=== PATIENT | male | born 1955 | race African-American/Black ===

== ENCOUNTER 2017-07-26 16:42 | Emergency (ER) | payer OTHER ==
[2017-07-26 17:06] VITALS: BMI 21.9
[2017-07-26 17:43] LABS: HEMATOCRIT 42.3 % (35.4-49); HEMOGLOBIN 14.2 GM/dL (11.7-16.9); MCH 30.3 pg (25.7-33.7); MCHC 33.6 g/dl (32.0-35.9); MEAN CELL VOLUME 90.1 fl (80-96); MEAN PLT VOLUME 7.4 fl (7.5-11.1); PLATELET COUNT 189 K/MM3 (134-434); RDW 12.6 % (11.9-15.9); WHITE BLOOD COUNT 4.9 K/mm3 (4.0-10.0)
--- NOTE | 2017-07-26 17:47 | PDOC ---
History of Present Illness - General History Source: Patient Exam Limitations: No Limitations - History of Present Illness Initial Comments: 07/26/17 17:56 Patient is a 61 year old male with pmhx of hypertension, seizure and stroke ( 2014) who presents to the ED brought in by EMS for an unusual episode of staring and unresponsiveness to his followed by an episode of urinary incontinence. As per he was unresponsive for 1 minute and his eyes were bulging and he had a straight glare. She also reports history of bladder incontinence after the episode. He denies biting his tongue or hitting his head. He states that he has history of a stroke in 2014 and his was very concerned for another episode. He reports having a head cold for few days and he took sinus/cold medication today before the episode. He had a flu shot on 07/14. Neurologist - Dr. Cardenas PCP - Dr. Hudson [facility] [place] Drum - Dr. Titus <Pebbles Merida - Last Filed: 07/26/17 18:44> <Esther Nicolas - Last Filed: 07/27/17 01:03> - General Chief Complaint: Altered Mental Status Stated Complaint: WEAKNESS Time Seen by Provider: 07/26/17 17:31 Past History <Pebbles Merida - Last Filed: 07/26/17 18:44> - Past Medical History Anemia: No Asthma: No Cancer: No Cardiac Disorders: Yes (Atrial fibrillation 03/23 ,Cardiac cath neg) CVA: Yes (cva 06/2015) COPD: No CHF: Yes Diabetes: Yes HTN: Yes Liver Disease: Yes - Surgical History Abdominal Surgery: Yes (ing hernia) - Immunization History Immunization Up to Date: Yes - Suicide/Smoking/Psychosocial Hx Smoking History: Never smoked Have you smoked in the past 12 months: No If you are a former smoker, when did you quit?: 27 years ago Information on smoking cessation initiated: No Hx Alcohol Use: No Drug/Substance Use Hx: No Substance Use Type: None Hx Substance Use Treatment: No <Esther Nicolas - Last Filed: 07/27/17 01:03> - Past Medical History Allergies/Adverse Reactions: Allergies Allergy/AdvReac Type Severity Reaction Status Date / Time No Known Allergies Allergy Verified 07/26/17 17:04 Home Medications: Ambulatory Orders Amlodipine Besylate 5 mg PO BID 04/09/16 Atorvastatin Ca [Lipitor] 10 mg PO HS 04/09/16 Cholecalciferol (Vitamin D3) [Vitamin D3] 1,000 unit PO DAILY 04/09/16 Cyanocobalamin [Vitamin B12 -] 1,000 mcg PO DAILY 04/09/16 Metoprolol Succinate [Toprol XL -] 100 mg PO DAILY 04/09/16 Rivaroxaban [Xarelto -] 20 mg PO DAILY 04/09/16 Valsartan 320 mg PO DAILY 04/09/16 Acetaminophen [Tylenol .Regular Strength -] 650 mg PO Q6H PRN #0 tablet Amlodipine Besylate [Norvasc -] 5 mg PO BID tablet 04/11/16 Amoxicillin - [Amoxicillin 500mg Capsule -] 500 mg PO TID #21 capsule 04/11/16 Triamcinolone 0.1% Oral Paste [Aristocort 0.1% Oral Paste -] 1 applic DT TID #1 tube 04/11/16 Valsartan [Diovan] 320 mg PO DAILY tablet 04/11/16 Levetiracetam [Keppra -] 500 mg PO BID #60 tablet 07/26/17 Levetiracetam [Keppra -] 500 mg PO BID #60 tablet 07/26/17 Review of Systems - Review of Systems Able to Perform ROS?: Yes Comments:: 07/26/17 17:56 CONSTITUTIONAL: Absent: fever, chills, diaphoresis, generalized weakness, malaise, loss of appetite HEENT: Absent: rhinorrhea, nasal congestion, throat pain, throat swelling, difficulty swallowing, mouth swelling, ear pain, eye pain, visual Changes CARDIOVASCULAR: Absent: chest pain, syncope, palpitations, irregular heart rate, lightheadedness , peripheral edema RESPIRATORY: Absent: cough, shortness of breath, dyspnea with exertion, orthopnea, wheezing, stridor, hemoptysis GASTROINTESTINAL: Absent: abdominal pain, abdominal distension, nausea, vomiting, diarrhea, constipation, melena, hematochezia GENITOURINARY: Absent: dysuria, frequency, urgency, hesitancy, hematuria, flank pain, genital pain MUSCULOSKELETAL: Absent: myalgia, arthralgia, joint swelling SKIN: Absent: rash, itching, pallor HEMATOLOGIC/IMMUNOLOGIC: Absent: easy bleeding, easy bruising, lymphadenopathy, frequent infections ENDOCRINE: Absent: unexplained weight gain, unexplained weight loss, heat intolerance, cold intolerance NEUROLOGIC: Present: bladder incontinence, unresponsiveness Absent: headache, focal weakness or paresthesias, dizziness, unsteady gait, seizure, mental status changes, bowel incontinence PSYCHIATRIC: Absent: anxiety, depression, suicidal or homicidal ideation, hallucinations. <Pebbles Merida - Last Filed: 07/26/17 18:44> *Physical Exam - Vital Signs Last Vital Signs Temp Pulse Resp BP Pulse Ox 98.2 F 51 L 18 115/70 100 07/26/17 17:04 07/26/17 17:04 07/26/17 17:04 07/26/17 17:04 07/26/17 17:04 - Physical Exam Comments: 07/26/17 17:58 GENERAL: Well developed, well nourished. Awake and alert. No acute distress. HEENT: Normocephalic, atraumatic. PERRLA, EOMI. +Proptosis. No conjunctival pallor. Sclera are non-icteric. Moist mucous membranes. Oropharynx is clear. NECK: Supple. Full ROM. No JVD. Carotid pulses 2+ and symmetric, without bruits. No thyromegaly. No lymphadenopathy. CARDIOVASCULAR: Regular rate and rhythm. No murmurs, rubs, or gallops. Distal pulses are 2+ and symmetric. PULMONARY: No evidence of respiratory distress. Lungs clear to auscultation bilaterally. No wheezing, rales or rhonchi. ABDOMINAL: Soft. Non-tender. Non-distended. No rebound or guarding. No organomegaly. Normoactive bowel sounds. MUSCULOSKELETAL Normal range of motion at all joints. No bony deformities or tenderness. No CVA tenderness. EXTREMITIES: No cyanosis. No clubbing. No edema. No calf tenderness. SKIN: Warm and dry. Normal capillary refill. No rashes. No jaundice. NEUROLOGICAL: +Slow word retrieval, non slurring. Motor strength 5/5 bilaterally. Alert, awake, appropriate. Cranial nerves 2-12 intact. No deficits to light touch and temperature in face, upper extremities and lower extremities. No motor deficits in the in face, upper extremities and lower extremities. Normoreflexic in the upper and lower extremities. Toes are down- going bilaterally. PSYCHIATRIC: Cooperative. Good eye contact. Appropriate mood and affect. <Pebbles Merida - Last Filed: 07/26/17 18:44> - Vital Signs Last Vital Signs Temp Pulse Resp BP Pulse Ox 98.2 F 51 L 18 115/70 100 07/26/17 17:04 07/26/17 17:04 07/26/17 17:04 07/26/17 17:04 07/26/17 17:04 <Esther Nicolas - Last Filed: 07/27/17 01:03> ED Treatment Course - LABORATORY CBC & Chemistry Diagram: 07/26/17 17:30 07/26/17 17:30 - ADDITIONAL ORDERS Additional order review: 07/26/17 17:30 RBC 4.70 D MCV 90.1 MCHC 33.6 RDW 12.6 MPV 7.4 L Neutrophils % No Result Required. Lymphocytes % No Result Required. <Pebbles Merida - Last Filed: 07/26/17 18:44> - LABORATORY CBC & Chemistry Diagram: 07/26/17 17:30 07/26/17 17:30 - RADIOLOGY Radiology Studies Ordered: Category Date Time Status HEAD CT WITHOUT CONTRAST [CT] Stat CT Scan 07/26/17 17:32 Ordered CHEST X-RAY PORTABLE* [RAD] Stat Radiology 07/26/17 17:32 Ordered <Esther Nicolash - Last Filed: 07/27/17 01:03> Medical Decision Making - Medical Decision Making 07/26/17 18:44 A call was placed to Dr. Emerson. Awaiting a call back. <Pebbles Merida - Last Filed: 07/26/17 18:44> - Medical Decision Making 61-year-old male with past medical history of stroke had a brief staring episodew urinary incontinence. By the time he arrived, he was back to baseline and his NIH stroke scale is essentially 0. - he had a stroke in 2015 . He has a problem with word searching this is a chronic problem. His states that since his strole in 2015 he has overall physically slower doing many activities of daily living. However, he has no new gross focal neuro deficitis today - CAT scan did show chronic infarcts and chronic changes but no new acute intracranial pathology. We called the patient's neurologist, Dr. Cardenas today and spoke to his associate Dr Mayorga recommended patient be started on Keppra 500 mg twice a day and follow-up in the office this . The plan is for Dr. Mayorga 's office to call them tomorrow to set up a specific time to be seen on . Patient will be started on Keppra with a loading dose RX keppra 500mg BID to pharamcy 07/26/17 19:03 07/26/17 20:19 <Esther Nicolas - Last Filed: 07/27/17 01:03> *DC/Admit/Observation/Transfer - Attestations Scribe Attestion: 07/26/17 17:59 Documentation prepared by MÓNICA Smith, acting as medical assisting instructor for Esther Nicolas MD. <Pebbles Merida - Last Filed: 07/26/17 18:44> <Esther Nicolas - Last Filed: 07/27/17 01:03> Diagnosis at time of Disposition: Partial seizure - Discharge Dispostion Disposition: HOME Condition at time of disposition: Stable - Prescriptions Prescriptions: Levetiracetam [Keppra -] 500 mg PO BID #60 tablet Levetiracetam [Keppra -] 500 mg PO BID #60 tablet - Referrals Referrals: Minh Hudson MD [Primary Care Provider] - - Patient Instructions - Post Discharge Activity NIH Stroke Scale - Last Known Well Date/Time & Onset Date Last Known Well: 07/26/17 Time Last Known Well: 16:00 - Initial Evaluation Level of consciousness: Alert Ask patient the month and their age: Answers both correctly Ask patient to open & close eyes; make fist and let go: Obeys both correctly Best gaze (horizontal eye movement): Normal Visual field testing: No visual field loss Facial paresis (Show teeth/raise eyebrows/close eyes tight): Normal symmetrical movement Motor Function: Left Arm: Normal Motor Function: Right Arm: Normal (extends arm 90 (or 45) degrees for 10 seconds without drift Motor Function: Left Leg: Normal (extends leg 30 degrees for 5 seconds without drift) Motor Function: Right Leg: Normal (extends leg 30 degrees for 5 seconds without drift) Limb Ataxia: No ataxia Sensory(Use pinprick test arms,legs,trunk,face/side to side): Normal Best language (Describe picture, name items, read sentences): No Aphasia Dysarthria (read several words): Normal articulation (he does have a problem with word searching and this is chronic since his stroke 2014) Extinction and Inattention: No abnormality - Total Score NIH Stroke Scale Score: 0 <Esther Nicolas - Last Filed: 07/27/17 01:03>
[2017-07-26 17:57] LABS: INR 1.51 (0.82-1.09); PROTHROMBIN TIME (PATIENT) 17.1 SEC (9.98-11.88)
[2017-07-26 18:13] LABS: ALBUMIN 3.9 g/dl (3.4-5.0); ANION GAP 8 (8-16); BILIRUBIN,TOTAL 0.4 mg/dL (0.2-1.0); BLOOD UREA NITROGEN 11 mg/dL (7-18); CALCIUM 9.3 mg/dL (8.5-10.1); CHLORIDE 103 mmol/L (98-107); CO2 26 mmol/L (21-32); CREATININE 0.9 mg/dL (0.7-1.3); GLUCOSE,RANDOM 105 mg/dL (74-106); SGPT/ALT 26 U/L (12-78); SODIUM 137 mmol/L (136-145); TOT PROT 7.8 g/dl (6.4-8.2)
[2017-07-26 18:16] LABS: ALK PHOS 56 U/L (45-117)
[2017-07-26 18:22] LABS: POTASSIUM 4.3 mmol/L (3.5-5.1); SGOT/AST 18 U/L (15-37)
[2017-07-26] MEDS ORDERED: levETIRAcetam 500 MG/5 ML INJECTION VIAL IVPB ONE ×2 (18:50→19:31)
[2017-07-26 18:56] LABS: PLATELET ESTIMATE ADEQUATE
[2017-07-26 20:21] VITALS: BP 125/77; PULSE 55; TEMP 98.1
--- NOTE | 2017-07-28 11:41 | EKG ---
Test Reason : Blood Pressure : / mmHG Vent. Rate : 052 BPM Atrial Rate : 052 BPM P-R Int : 176 ms QRS Dur : 086 ms QT Int : 432 ms P-R-T Axes : 083 052 045 degrees QTc Int : 401 ms POOR DATA QUALITY, INTERPRETATION MAY BE ADVERSELY AFFECTED SINUS BRADYCARDIA OTHERWISE NORMAL ECG WHEN COMPARED WITH ECG OF 09-APR-2016 16:06, NO SIGNIFICANT CHANGE WAS FOUND Confirmed by LULI BARON MD ([id number]) on 07/28/2017 11:41:32 AM Referred By: Confirmed By:LULI BARON MD
== END 2017-07-26 20:35 | disposition home or self-care (01) ==
LOC: JER 16:42
PROC: 3E033GC Introduction of Other Therapeutic Substance into Peripheral Vein, Percutaneous Approach (ICD-10-PCS; principal; 2017-07-26)
DX: G40.109 Localization-related (focal) (partial) symptomatic epilepsy and epileptic syndromes with simple partial seizures, not intractable, without status epilepticus (principal); Z87.891 Personal history of nicotine dependence; I10 Essential (primary) hypertension; E11.9 Type 2 diabetes mellitus without complications; I48.91 Unspecified atrial fibrillation; I50.9 Heart failure, unspecified
CPT/HCPCS: 36415; 70450-TC; 71010-TC; 80053; 82550; 84484; 85025; 85610; 86850; 86900; 86901; 93005; 93010; 96374; 99283-25

== ENCOUNTER 2019-01-06 22:46 | Inpatient (IN) | payer OTHER, MEDICARE ==
[2019-01-07 00:45] LABS: BASO % 0.4 % (0-2.0); EOS % 1.3 % (0-4.5); HEMATOCRIT 41.7 % (35.4-49); HEMOGLOBIN 14.1 GM/dL (11.7-16.9); LYMPH % 29.7 % (8-40); MCH 30.7 pg (25.7-33.7); MCHC 33.8 g/dl (32.0-35.9); MEAN CELL VOLUME 90.8 fl (80-96); MEAN PLT VOLUME 7.6 fl (7.5-11.1); MONO % 7.6 % (3.8-10.2); PLATELET COUNT 221 K/MM3 (134-434); RDW 12.5 % (11.9-15.9); URINE APPEARANCE CLEAR; URINE BILIRUBIN NEGATIVE (NEGATIVE); URINE COLOR YELLOW; URINE GLUCOSE (UA) NEGATIVE (NEGATIVE); URINE KETONE NEGATIVE (NEGATIVE); URINE LEUK ESTERASE NEGATIVE (NEGATIVE); URINE NITRITE NEGATIVE (NEGATIVE); URINE PROTEIN NEGATIVE (NEGATIVE); URINE UROBILINOGEN 0.2 mg/dL (0.2-1.0); WHITE BLOOD COUNT 5.3 K/mm3 (4.0-10.0)
[2019-01-07 00:59] LABS: INR 1.38 (0.83-1.09); PROTHROMBIN TIME (PATIENT) 16.3 SEC (9.7-13.0)
[2019-01-07 01:13] LABS: ALBUMIN 4.5 g/dl (3.4-5.0); ALK PHOS 55 U/L (45-117); ANION GAP 6 MMOL/L (8-16); BILIRUBIN,TOTAL 0.4 mg/dL (0.2-1); BLOOD UREA NITROGEN 11 mg/dL (7-18); CALCIUM 10.1 mg/dL (8.5-10.1); CHLORIDE 105 mmol/L (98-107); CO2 26 mmol/L (21-32); CREATININE 0.9 mg/dL (0.55-1.3); GLUCOSE,RANDOM 91 mg/dL (74-106); POTASSIUM 3.6 mmol/L (3.5-5.1); SGOT/AST 17 U/L (15-37); SGPT/ALT 33 U/L (13-61); SODIUM 138 mmol/L (136-145); TOT PROT 8.3 g/dl (6.4-8.2)
[2019-01-07 01:18] LABS: MAGNESIUM 2.2 mg/dL (1.8-2.4); PHOSPHOROUS 2.6 mg/dL (2.5-4.9)
[2019-01-07] MEDS ORDERED: VALSARTAN 40 MG TABLET (FP) PO ONE (02:03)
[2019-01-07] MEDS ORDERED: levETIRAcetam 500 MG TABLET (FP) PO ONE ×2 (02:03→02:08)
--- NOTE | 2019-01-07 02:06 | PDOC ---
History of Present Illness - General Chief Complaint: Altered Mental Status Stated Complaint: FEELING CONFUSED Time Seen by Provider: 01/07/19 00:07 - History of Present Illness Initial Comments: 01/07/19 02:03 63 year old man with a history of hypertension, seizure and stroke (2014) who presents to the ED 1 hour episode of zoning out and intermittent R arm shaking as witnessed by his . recently re-started on keppra by Dr. Hudson for complaints of body tightness and "zoning out" now baseline at bedside Past History - Past Medical History Allergies/Adverse Reactions: Allergies Allergy/AdvReac Type Severity Reaction Status Date / Time No Known Allergies Allergy Verified 07/26/17 17:04 Home Medications: Ambulatory Orders Atorvastatin Ca [Lipitor] 10 mg PO HS 04/09/16 Cholecalciferol (Vitamin D3) [Vitamin D3] 1,000 unit PO DAILY 04/09/16 Cyanocobalamin [Vitamin B12 -] 1,000 mcg PO DAILY 04/09/16 Metoprolol Succinate [Toprol XL -] 100 mg PO DAILY 04/09/16 Rivaroxaban [Xarelto -] 20 mg PO DAILY 04/09/16 Acetaminophen [Tylenol .Regular Strength -] 650 mg PO Q6H PRN #0 tablet levETIRAcetam [Keppra -] 500 mg PO BID #60 tablet 07/26/17 Amlodipine Besylate [Norvasc -] 10 mg PO BID 01/07/19 Olmesartan Medoxomil 20 mg PO DAILY 01/07/19 Anemia: No Asthma: No Cancer: No Cardiac Disorders: Yes (Atrial fibrillation 03/23 ,Cardiac cath neg) CVA: Yes (cva 06/2015) COPD: No CHF: Yes Diabetes: Yes HTN: Yes Liver Disease: Yes - Surgical History Abdominal Surgery: Yes (ing hernia) - Immunization History Immunization Up to Date: Yes - Suicide/Smoking/Psychosocial Hx Smoking History: Former smoker Have you smoked in the past 12 months: No If you are a former smoker, when did you quit?: 1986 Information on smoking cessation initiated: No Hx Alcohol Use: No Drug/Substance Use Hx: No Substance Use Type: None Hx Substance Use Treatment: No *Physical Exam - Vital Signs Last Vital Signs Temp Pulse Resp BP Pulse Ox 98.1 F 81 20 148/81 100 01/06/19 22:51 01/06/19 22:51 01/06/19 22:51 01/06/19 22:51 01/06/19 22:51 ED Treatment Course - LABORATORY CBC & Chemistry Diagram: 01/07/19 00:20 01/07/19 00:20 - ADDITIONAL ORDERS Additional order review: Laboratory Results 01/07/19 01/07/19 01/07/19 00:20 00:20 00:20 PT with INR INR Sodium 138 Potassium 3.6 Chloride 105 Carbon Dioxide 26 Anion Gap 6 L BUN 11 Creatinine 0.9 Est GFR (CKD-EPI)AfAm 106.46 Est GFR (CKD-EPI)NonAf 91.86 Random Glucose 91 Calcium 10.1 Phosphorus 2.6 Magnesium 2.2 Total Bilirubin 0.4 AST 17 ALT 33 Alkaline Phosphatase 55 Ammonia 21.50 Creatine Kinase 61 Troponin I < 0.02 Total Protein 8.3 H Albumin 4.5 TSH 1.11 D Urine Color Urine Appearance Urine pH Ur Specific [place] Urine Protein Urine Glucose (UA) Urine Ketones Urine Blood Urine Nitrite Urine Bilirubin Urine Urobilinogen Ur Leukocyte Esterase 01/07/19 01/07/19 00:20 00:20 PT with INR 16.30 H INR 1.38 H Sodium Potassium Chloride Carbon Dioxide Anion Gap BUN Creatinine Est GFR (CKD-EPI)AfAm Est GFR (CKD-EPI)NonAf Random Glucose Calcium Phosphorus Magnesium Total Bilirubin AST ALT Alkaline Phosphatase Ammonia Creatine Kinase Troponin I Total Protein Albumin TSH Urine Color Yellow Urine Appearance Clear Urine pH 7.0 D Ur Specific [place] 1.003 L Urine Protein Negative Urine Glucose (UA) Negative Urine Ketones Negative Urine Blood Negative Urine Nitrite Negative Urine Bilirubin Negative Urine Urobilinogen 0.2 Ur Leukocyte Esterase Negative 01/07/19 00:20 RBC 4.60 MCV 90.8 MCHC 33.8 RDW 12.5 MPV 7.6 Neutrophils % 61.0 Lymphocytes % 29.7 D Monocytes % 7.6 Eosinophils % 1.3 Basophils % 0.4 Medical Decision Making - Medical Decision Making 01/07/19 02:05 ED Course: ddx ibnlt: CVA vs seizure consider panic attack electrolyte derangement infectious labs wnl CT head - no acute pathology patient will need to be monitored overnight to r/o CVA and will plan for MRI *DC/Admit/Observation/Transfer Diagnosis at time of Disposition: Partial seizure, CVA (cerebral vascular accident) - Discharge Dispostion Decision to Admit order: Yes - Referrals Referrals: Minh Hudson MD [Primary Care Provider] - - Patient Instructions - Post Discharge Activity
[2019-01-07] MEDS ORDERED: VALSARTAN 80 MG TABLET (UD) ONE (02:08)
[2019-01-07] MEDS ORDERED: levETIRAcetam 500 MG/5 ML INJECTION VIAL IVPB ONE (02:35)
--- NOTE | 2019-01-07 02:37 | PDOC ---
Documentation entered by Guy Jara SCRIBE, acting as scribe for Bessie Lawrence MD. Bessie Lawrence MD: This documentation has been prepared by the Marek perkins Nirvannie, SCRIBE, under my direction and personally reviewed by me in its entirety. I confirm that the documentation accurately reflects all work, treatment, procedures, and medical decision making performed by me. Attending Attestation - Resident Resident Name: Kate Foreman - ED Attending Attestation I have performed the following: I have examined & evaluated the patient, The case was reviewed & discussed with the resident, I agree w/resident's findings & plan - HPI HPI: 01/07/19 02:12 The patient is a 63 year old male, with a significant past medical history of hypertension, seizure disorder (recently placed on Keppra again after it was discontinued), glaucoma, and CVA(2014), who presents to the emergency department s/p episode of staring episode and right sided tremor. As per patient s at bedside, after coming out of the bathroom the patient experienced an episode of staring, increased anxiety, and shortness of breath with associated right sided tremor. While in the ED, patient is at his baseline and only complaint is chills. She notes the patient is scheduled for an outpatient MRI tomorrow for new onset of full-body tightness and was recently placed back on his Keppra by his PCP. He denies any urinary or bowel incontinence. He denies any tongue biting. He denies any recent nausea, vomit, diarrhea or constipation. He denies any recent chest pain or palpitations. He denies any recent dysuria, frequency, urgency or hematuria. Allergies: NKDA Primary Care Physician: Dr. Hudson Neurologist: Dr. Emerson - Physicial Exam PE: 01/07/19 02:12 GENERAL: Awake, alert, and fully oriented, in no acute distress HEAD: No signs of trauma EYES: +Right eye:Conjunctival erythema, bulging, and decreased vision secondary to glaucoma. ENT: Auricles normal inspection, hearing grossly normal, nares patent, oropharynx clear without exudates. Moist mucosa NECK: Normal ROM, supple, no lymphadenopathy, JVD, or masses LUNGS: Breath sounds equal, clear to auscultation bilaterally. No wheezes, and no crackles HEART: Regular rate and rhythm, normal S1 and S2, no murmurs, rubs or gallops ABDOMEN: Soft, nontender, normoactive bowel sounds. No guarding, no rebound. No masses EXTREMITIES: +Right hand shaking. Normal range of motion, no edema. No clubbing or cyanosis. No cords, erythema, or tenderness NEUROLOGICAL: A&O x3. Cranial nerves II through XII grossly intact. Normoreflexic in the upper and lower extremities. Normal speech. Toes are down- going bilaterally. Gait is normal without ataxia. SKIN: Warm, Dry, normal turgor, no rashes or lesions noted. - Medical Decision Making 01/07/19 01:51 Patient Name: SHAKILA SALOMON THIS IS A PRELIMINARY REPORT FROM [facility] DATE OF SERVICE: 2019-01-07 00:25:38 IMAGES: [id number] EXAM: CT HEAD WITHOUT CONTRAST HISTORY: AMS. Headache. COMPARISON: None. FINDINGS: 1. Atrophy and periventricular white matter small vessel ischemic disease, presumably chronic. 2. Chronic right cerebellar infarct. 3. There is no intracranial bleed, extra-axial fluid collection, mass effect, midline shift, hydrocephalus or acute territorial infarct evident. 4. Small calcification along the left frontal concavity near the vertex may represent a calcified meningioma without mass effect. 01/07/19 02:36 All labs normal.
--- NOTE | 2019-01-07 02:43 | HP ---
CHIEF COMPLAINT: zoning out, right hand shaking PCP: Becca HISTORY OF PRESENT ILLNESS: 63 year old man brought in by after 1 hour episode of zoning out and intermittent R arm shaking - witnessed by his . Occurred at 8pm on 01/06.. Pt did not lose consciousness, denied any focal weakness, or sensory loss. No loss of bladder or bowel control. He was taken off Keppra about 1 year ago by his neurologist and restarted back on it about one week ago by Dr. Hudson after he had a similar episode of "zoning out" about a month ago. He was scheduled to have brain mri today. ER course was notable for: (1) head CT (2) 500mg keppra po, 500mg IV Keppra (3) Recent Travel:no PAST MEDICAL HISTORY:htn, hld, cva (06/2015), paroxysmal aflutter/afib? on ac, seizure disorder, etoh abuse PAST SURGICAL HISTORY: no Social History: Smoking:no Alcohol: drinks 3 beers a day Drugs: no Family History:no Allergies No Known Allergies Allergy (Verified 07/26/17 17:04) HOME MEDICATIONS: Home Medications Medication Instructions Recorded Atorvastatin Ca [Lipitor] 10 mg PO HS 04/09/16 Cholecalciferol (Vitamin D3) 1,000 unit PO DAILY 04/09/16 [Vitamin D3] Cyanocobalamin [Vitamin B12 -] 1,000 mcg PO DAILY 04/09/16 Metoprolol Succinate [Toprol XL -] 100 mg PO DAILY 04/09/16 Rivaroxaban [Xarelto -] 20 mg PO DAILY 04/09/16 Acetaminophen [Tylenol .Regular 650 mg PO Q6H PRN #0 tablet 04/11/16 Strength -] levETIRAcetam [Keppra -] 500 mg PO BID #60 tablet 07/26/17 Amlodipine Besylate [Norvasc -] 10 mg PO BID 01/07/19 Olmesartan Medoxomil 20 mg PO DAILY 01/07/19 REVIEW OF SYSTEMS CONSTITUTIONAL: Absent: fever, chills, diaphoresis, generalized weakness, malaise, loss of appetite, weight change HEENT: Absent: rhinorrhea, nasal congestion, throat pain, throat swelling, difficulty swallowing, mouth swelling, ear pain, eye pain, visual changes CARDIOVASCULAR: Absent: chest pain, syncope, palpitations, irregular heart rate, lightheadedness , peripheral edema RESPIRATORY: Absent: cough, shortness of breath, dyspnea with exertion, orthopnea, wheezing, stridor, hemoptysis GASTROINTESTINAL: Absent: abdominal pain, abdominal distension, nausea, vomiting, diarrhea, constipation, melena, hematochezia GENITOURINARY: Absent: dysuria, , urgency, hesitancy, hematuria, flank pain, genital pain present- frequency MUSCULOSKELETAL: Absent: myalgia, arthralgia, joint swelling, back pain, neck pain SKIN: Absent: rash, itching, pallor HEMATOLOGIC/IMMUNOLOGIC: Absent: easy bleeding, easy bruising, lymphadenopathy, frequent infections ENDOCRINE: Absent: unexplained weight gain, unexplained weight loss, heat intolerance, cold intolerance NEUROLOGIC: Absent: headache, focal weakness or paresthesias, dizziness, unsteady gait, seizure, mental status changes, bladder or bowel incontinence PSYCHIATRIC: Absent: anxiety, depression, suicidal or homicidal ideation, hallucinations. PHYSICAL EXAMINATION Vital Signs - 24 hr 01/06/19 01/07/19 22:51 02:23 Temperature 98.1 F 99.2 F Pulse Rate 81 Respiratory 20 Rate Blood Pressure 148/81 O2 Sat by Pulse 100 Oximetry (%) GENERAL: Awake, alert, and fully oriented, in no acute distress. HEAD: Normal with no signs of trauma. EYES: Pupils equal, round and reactive to light, extraocular movements intact, sclera anicteric, conjunctiva clear. No lid lag. EARS, NOSE, THROAT: Ears normal, nares patent, oropharynx clear without exudates. Moist mucous membranes. NECK: Normal range of motion, supple without lymphadenopathy, JVD, or masses. LUNGS: Breath sounds equal, clear to auscultation bilaterally. No wheezes, and no crackles. No accessory muscle use. HEART: Regular rate and rhythm, normal S1 and S2 without murmur, rub or gallop. ABDOMEN: Soft, nontender, not distended, normoactive bowel sounds, no guarding, no rebound, no masses. MUSCULOSKELETAL: Normal range of motion at all joints. No bony deformities or tenderness. No CVA tenderness. UPPER EXTREMITIES: 2+ pulses, warm, well-perfused. No cyanosis. No clubbing. No peripheral edema. LOWER EXTREMITIES: 2+ pulses, warm, well-perfused. No calf tenderness. No peripheral edema. NEUROLOGICAL: Cranial nerves II-XII intact. Normal speech. Normal gait. PSYCHIATRIC: Cooperative. Good eye contact. Appropriate mood and affect. SKIN: Warm, dry, normal turgor, no rashes or lesions noted, normal capillary refill. Laboratory Results - last 24 hr 01/07/19 01/07/19 01/07/19 00:20 00:20 00:20 WBC 5.3 RBC 4.60 Hgb 14.1 Hct 41.7 MCV 90.8 MCH 30.7 MCHC 33.8 RDW 12.5 Plt Count 221 MPV 7.6 Absolute Neuts (auto) 3.3 Neutrophils % 61.0 Lymphocytes % 29.7 D Monocytes % 7.6 Eosinophils % 1.3 Basophils % 0.4 Nucleated RBC % 0 PT with INR 16.30 H INR 1.38 H Sodium Potassium Chloride Carbon Dioxide Anion Gap BUN Creatinine Est GFR (CKD-EPI)AfAm Est GFR (CKD-EPI)NonAf Random Glucose Calcium Phosphorus Magnesium Total Bilirubin AST ALT Alkaline Phosphatase Ammonia Creatine Kinase Troponin I Total Protein Albumin TSH Urine Color Yellow Urine Appearance Clear Urine pH 7.0 D Ur Specific [place] 1.003 L Urine Protein Negative Urine Glucose (UA) Negative Urine Ketones Negative Urine Blood Negative Urine Nitrite Negative Urine Bilirubin Negative Urine Urobilinogen 0.2 Ur Leukocyte Esterase Negative 01/07/19 01/07/19 01/07/19 00:20 00:20 00:20 WBC RBC Hgb Hct MCV MCH MCHC RDW Plt Count MPV Absolute Neuts (auto) Neutrophils % Lymphocytes % Monocytes % Eosinophils % Basophils % Nucleated RBC % PT with INR INR Sodium 138 Potassium 3.6 Chloride 105 Carbon Dioxide 26 Anion Gap 6 L BUN 11 Creatinine 0.9 Est GFR (CKD-EPI)AfAm 106.46 Est GFR (CKD-EPI)NonAf 91.86 Random Glucose 91 Calcium 10.1 Phosphorus 2.6 Magnesium 2.2 Total Bilirubin 0.4 AST 17 ALT 33 Alkaline Phosphatase 55 Ammonia 21.50 Creatine Kinase 61 Troponin I < 0.02 Total Protein 8.3 H Albumin 4.5 TSH 1.11 D Urine Color Urine Appearance Urine pH Ur Specific [place] Urine Protein Urine Glucose (UA) Urine Ketones Urine Blood Urine Nitrite Urine Bilirubin Urine Urobilinogen Ur Leukocyte Esterase imaging studies reviewed ekg -nsr ASSESSMENT/PLAN: #Breakthrough seizure epsiode- partial seizure? S/p 500mg po Keppra in ER- ordered another 500mg IV for 1g full loading dose. Might need increase in AED dose -admit to telemetry -neurochecks q4hrs -monitor VS closely -bed rest -fall precautions -NPO for now -neuro consult -f/u official head CT report #HTN -uncontrolled -olmesartan -amlodipine -Toprolol XL -titrate meds as needed #PAroxysmal afib/aflutter- rate controlled -c/w toprolol home dose -c/w xarelto 20mg po daily #dvt ppx- on xarelto Visit type - Emergency Visit Emergency Visit: Yes ED Registration Date: 01/07/19 Care time: The patient presented to the Emergency Department on the above date and was hospitalized for further evaluation of their emergent condition. - New Patient This patient is new to me today: Yes Date on this admission: 01/07/19 - Critical Care Critical Care patient: No
[2019-01-07] MEDS ORDERED: BISACODYL 5 MG TABLET.DR (FP) PO ONE (04:16)
[2019-01-07 06:04] LABS: BASO % 0.6 % (0-2.0); EOS % 1.4 % (0-4.5); HEMATOCRIT 37.2 % (35.4-49); HEMOGLOBIN 12.8 GM/dL (11.7-16.9); LYMPH % 38.7 % (8-40); MCHC 34.4 g/dl (32.0-35.9); MEAN CELL VOLUME 90.2 fl (80-96); MEAN PLT VOLUME 6.9 fl (7.5-11.1); MONO % 10.1 % (3.8-10.2); NEUT % 49.2 % (42.8-82.8); PLATELET COUNT 202 K/MM3 (134-434); RBC 4.12 M/mm3 (4.00-5.60); RDW 12.5 % (11.9-15.9); WHITE BLOOD COUNT 4.9 K/mm3 (4.0-10.0)
[2019-01-07 06:38] LABS: CALCIUM 9.5 mg/dL (8.5-10.1); CREATININE 0.8 mg/dL (0.55-1.3); POTASSIUM 3.7 mmol/L (3.5-5.1)
[2019-01-07] MEDS: THIAMINE HCL 100 MG TABLET (FP) PO SCH (09:35)
[2019-01-07] MEDS: FOLIC ACID 1 MG TABLET (FP) PO SCH (09:35)
[2019-01-07] MEDS: levETIRAcetam 500 MG TABLET (FP) PO SCH ×2 (09:35→22:19)
[2019-01-07] MEDS: amLODIPine BESYLATE 10 MG TABLET (FP) PO SCH (09:35)
[2019-01-07] MEDS: HEPARIN NA (PORCINE) 5,000 UNITS/ML 1ML VIAL SQ SCH ×2 (09:35→22:20)
[2019-01-07] MEDS: VALSARTAN 160 MG TABLET (UD) PO SCH (09:35)
[2019-01-07] MEDS ORDERED: amLODIPine BESYLATE 5 MG TABLET (FP) PO SCH (10:00)
--- NOTE | 2019-01-07 10:52 | PN ---
Progress Note, Physician Chief Complaint: AWAKE ALERT EVENTS AND NOTES REVIEWED NAD - Current Medication List Current Medications: Active Medications Amlodipine Besylate (Norvasc -) 10 mg PO DAILY [facility] Last Admin: 01/07/19 09:35 Dose: 10 mg Atorvastatin Calcium (Lipitor -) 10 mg PO [facility] Folic Acid (Folic Acid -) 1 mg PO DAILY [facility] Last Admin: 01/07/19 09:35 Dose: 1 mg Heparin Sodium (Porcine) (Heparin -) 5,000 unit SQ BID [facility] Last Admin: 01/07/19 09:35 Dose: 5,000 unit Levetiracetam (Keppra -) 500 mg PO BID [facility] Last Admin: 01/07/19 09:35 Dose: 500 mg Metoprolol Succinate (Toprol Xl -) 100 mg PO DAILY [facility] Last Admin: 01/07/19 09:35 Dose: 100 mg Rivaroxaban (Xarelto) 20 mg PO DAILY@1200 RADHA Thiamine HCl (Vitamin B1 -) 100 mg PO DAILY [facility] Last Admin: 01/07/19 09:35 Dose: 100 mg Valsartan (Diovan -) 160 mg PO DAILY [facility] Last Admin: 01/07/19 09:35 Dose: 160 mg - Objective Vital Signs: Vital Signs Temperature 98 F 01/07/19 09:35 Pulse Rate 72 01/07/19 09:35 Respiratory Rate 17 01/07/19 09:35 Blood Pressure 142/90 01/07/19 09:35 O2 Sat by Pulse Oximetry (%) 98 01/07/19 09:35 Constitutional: Yes: No Distress Eyes: Yes: WNL HENT: Yes: WNL Neck: Yes: WNL Cardiovascular: Yes: Regular Rate and Rhythm Respiratory: Yes: WNL Gastrointestinal: Yes: WNL Genitourinary: Yes: WNL Musculoskeletal: Yes: Muscle Weakness Extremities: Yes: WNL Edema: No Peripheral Pulses WNL: Yes Integumentary: Yes: WNL Wound/Incision: Yes: Clean/Dry Neurological: Yes: Pre-Existing Deficit, Unsteady Gait ...Motor Strength: LLE, RLE Psychiatric: Yes: WNL Labs: CBC, BMP 01/07/19 05:47 01/07/19 05:47 INR, PTT INR 1.38 (0.83-1.09) H 01/07/19 00:20 Problem List - Problems (1) CVA (cerebral vascular accident) Code(s): I63.9 - CEREBRAL INFARCTION, UNSPECIFIED (2) Partial seizure Code(s): R56.9 - UNSPECIFIED CONVULSIONS (3) Atrial fibrillation Code(s): I48.91 - UNSPECIFIED ATRIAL FIBRILLATION Assessment/Plan 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
[2019-01-07] MEDS ORDERED: LORazepam 1 MG TABLET PO ONE ×2 (10:59→17:00)
[2019-01-07] MEDS ORDERED: LORazepam 2 MG/ML SDV VIAL IVPUSH ONE ×2 (10:59→17:00)
[2019-01-07 12:06] VITALS: BMI 22.6
[2019-01-07] MEDS: RIVAROXABAN 20 MG TABLET PO SCH (12:09)
--- NOTE | 2019-01-07 12:09 | CON.NEURO ---
Consult - History of Present Illness History of Present Illness: covering for DR DYE, though pt known to me 63 year old man hx of prior stroke , afib on AC , brought in by after 1 hour episode of zoning out and intermittent R arm shaking - witnessed by his . Occurred at 8pm on 01/06.. Pt did not lose consciousness, denied any focal weakness, or sensory loss. No loss of bladder or bowel control. He was taken off Keppra about 1 year ago and restarted back on it about one week ago by Dr. Hudson after he had a similar episode of "zoning out" about a month ago. He was scheduled to have brain mri as outpt. 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 No: GERD - Alcohol/Substance Use Hx Alcohol Use: No - Smoking History Smoking history: Former smoker Have you smoked in the past 12 months: No If you are a former smoker, when did you quit?: 1986 - Social History Usual Living Arrangement: With Spouse (lives in apartment with with 21 steps to enter; previously Independent in ADLs/ IADLS) ADL: Independent History of Recent Travel: No Home Medications - Allergies Allergies/Adverse Reactions: Allergies Allergy/AdvReac Type Severity Reaction Status Date / Time No Known Allergies Allergy Verified 07/26/17 17:04 - Home Medications Home Medications: Ambulatory Orders Atorvastatin Ca [Lipitor] 10 mg PO HS 04/09/16 Cholecalciferol (Vitamin D3) [Vitamin D3] 1,000 unit PO DAILY 04/09/16 Cyanocobalamin [Vitamin B12 -] 1,000 mcg PO DAILY 04/09/16 Metoprolol Succinate [Toprol XL -] 100 mg PO DAILY 04/09/16 Rivaroxaban [Xarelto -] 20 mg PO DAILY 04/09/16 Acetaminophen [Tylenol .Regular Strength -] 650 mg PO Q6H PRN #0 tablet levETIRAcetam [Keppra -] 500 mg PO BID #60 tablet 07/26/17 Amlodipine Besylate [Norvasc -] 10 mg PO BID 01/07/19 Olmesartan Medoxomil 20 mg PO DAILY 01/07/19 Physical Exam-Neuro Vital Signs: Vital Signs Temperature 98 F 01/07/19 09:35 Pulse Rate 72 01/07/19 09:35 Respiratory Rate 17 01/07/19 09:35 Blood Pressure 142/90 01/07/19 09:35 O2 Sat by Pulse Oximetry (%) 98 01/07/19 09:35 Labs: CBC, BMP 01/07/19 05:47 01/07/19 05:47 INR, PTT INR 1.38 (0.83-1.09) H 01/07/19 00:20 - Neuro Exam Level Of Consciousness: Yes: Alert (ptosis R eye , no facial, + tremor RUE >LUE --inconsistent, not clearly resting , position or at rest, mild cogwheeling initally though this imporves with testing, no focal weakness ), Oriented to Person Imaging - Results Cat Scan: Report Reviewed, Image Reviewed Problem List - Problems (1) CVA (cerebral vascular accident) Code(s): I63.9 - CEREBRAL INFARCTION, UNSPECIFIED (2) Partial seizure Code(s): R56.9 - UNSPECIFIED CONVULSIONS (3) Atrial fibrillation Code(s): I48.91 - UNSPECIFIED ATRIAL FIBRILLATION Assessment/Plan 63 year old man hx of prior stroke , afib on AC , brought in by after 1 hour episode of zoning out and intermittent R arm shaking - witnessed by his . Occurred at 8pm on 01/06.. Pt did not lose consciousness, denied any focal weakness, or sensory loss. No loss of bladder or bowel control. He was taken off Keppra about 1 year ago by his neurologist and restarted back on it about one week ago by Dr. Hudson after he had a similar episode of "zoning out" about a month ago. He was scheduled to have brain mri as outpt. CT HD : chronic infract , R >L --cerebellum, mild atrophy AP : HX of remote CVA /AFIB on AC, hx of possible seizures though as per some time ago, she denies any recent events --apx one month ago was noted to having zoning out periods and PMD restarted on low dose keppra-now comes in for RUE shaking seems more like tremor than rhythmical movement related to a seizure differential includes partial seizure vs PD vs a form of Essential tremor vs metabolic tremor cont Keppra 500BID check MRI BRAIN give trial of sinemet 25/100 TID and see if makes difference tried to call , though she was NA DR FRANCISCO
[2019-01-07] MEDS: CARBIDOPA/LEVODOPA 25/100 TABLET (FP) PO SCH ×2 (15:22→22:19)
[2019-01-07] MEDS ORDERED: ATORVASTATIN CA 10 MG TABLET (FP) PO SCH (22:00)
[2019-01-08] MEDS: CARBIDOPA/LEVODOPA 25/100 TABLET (FP) PO SCH ×2 (06:20→14:43)
[2019-01-08] MEDS: HEPARIN NA (PORCINE) 5,000 UNITS/ML 1ML VIAL SQ SCH (09:34)
[2019-01-08] MEDS: THIAMINE HCL 100 MG TABLET (FP) PO SCH (09:34)
[2019-01-08] MEDS: VALSARTAN 160 MG TABLET (UD) PO SCH (09:34)
[2019-01-08] MEDS: levETIRAcetam 500 MG TABLET (FP) PO SCH (09:34)
[2019-01-08] MEDS: amLODIPine BESYLATE 10 MG TABLET (FP) PO SCH (09:34)
[2019-01-08] MEDS: FOLIC ACID 1 MG TABLET (FP) PO SCH (09:34)
--- NOTE | 2019-01-08 10:30 | PN ---
Progress Note (short form) - Note Progress Note: 63 year old man hx of prior stroke , afib on AC , brought in by after 1 hour episode of zoning out and intermittent R arm shaking - witnessed by his . Occurred at 8pm on 01/06.. Pt did not lose consciousness, denied any focal weakness, or sensory loss. No loss of bladder or bowel control. He was taken off Keppra about 1 year ago and restarted back on it about one week ago by Dr. Hudson after he had a similar episode of "zoning out" about a month ago. He was scheduled to have brain mri as outpt. 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 No: GERD - Alcohol/Substance Use Hx Alcohol Use: No - Smoking History Smoking history: Former smoker Have you smoked in the past 12 months: No If you are a former smoker, when did you quit?: 1986 - Social History Usual Living Arrangement: With Spouse (lives in apartment with with 21 steps to enter; previously Independent in ADLs/ IADLS) ADL: Independent History of Recent Travel: No Home Medications - Allergies Allergies/Adverse Reactions: Allergies Allergy/AdvReac Type Severity Reaction Status Date / Time No Known Allergies Allergy Verified 07/26/17 17:04 - Home Medications Home Medications: Ambulatory Orders Atorvastatin Ca [Lipitor] 10 mg PO HS 04/09/16 Cholecalciferol (Vitamin D3) [Vitamin D3] 1,000 unit PO DAILY 04/09/16 Cyanocobalamin [Vitamin B12 -] 1,000 mcg PO DAILY 04/09/16 Metoprolol Succinate [Toprol XL -] 100 mg PO DAILY 04/09/16 Rivaroxaban [Xarelto -] 20 mg PO DAILY 04/09/16 Acetaminophen [Tylenol .Regular Strength -] 650 mg PO Q6H PRN #0 tablet levETIRAcetam [Keppra -] 500 mg PO BID #60 tablet 07/26/17 Amlodipine Besylate [Norvasc -] 10 mg PO BID 01/07/19 Olmesartan Medoxomil 20 mg PO DAILY 01/07/19 Physical Exam-Neuro Vital Signs: Vital Signs Temperature 98 F 01/07/19 09:35 Pulse Rate 72 01/07/19 09:35 Respiratory Rate 17 01/07/19 09:35 Blood Pressure 142/90 01/07/19 09:35 O2 Sat by Pulse Oximetry (%) 98 01/07/19 09:35 Labs: CBC, BMP 01/07/19 05:47 01/07/19 05:47 INR, PTT INR 1.38 (0.83-1.09) H 01/07/19 00:20 - Neuro Exam Level Of Consciousness: Yes: Alert (ptosis R eye , no facial, + tremor RUE >LUE --inconsistent, not clearly resting , position or at rest, mild cogwheeling initally though this imporves with testing, no focal weakness ), Oriented to Person Imaging - Results Cat Scan: Report Reviewed, Image Reviewed Problem List - Problems (1) CVA (cerebral vascular accident) Code(s): I63.9 - CEREBRAL INFARCTION, UNSPECIFIED (2) Partial seizure Code(s): R56.9 - UNSPECIFIED CONVULSIONS (3) Atrial fibrillation Code(s): I48.91 - UNSPECIFIED ATRIAL FIBRILLATION Assessment/Plan 63 year old man hx of prior stroke , afib on AC , brought in by after 1 hour episode of zoning out and intermittent R arm shaking - witnessed by his . Occurred at 8pm on 01/06.. Pt did not lose consciousness, denied any focal weakness, or sensory loss. No loss of bladder or bowel control. He was taken off Keppra about 1 year ago by his neurologist and restarted back on it about one week ago by Dr. Hudson after he had a similar episode of "zoning out" about a month ago. He was scheduled to have brain mri as outpt. 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
[2019-01-08 10:39] VITALS: PULSE 115
[2019-01-08] MEDS: RIVAROXABAN 20 MG TABLET PO SCH (12:03)
--- NOTE | 2019-01-08 12:22 | DS ---
Physical Examination Vital Signs: Vital Signs Temperature 98.2 F 01/08/19 06:00 Pulse Rate 115 H 01/08/19 10:38 Respiratory Rate 30 H 01/08/19 10:38 Blood Pressure 149/88 01/08/19 10:38 O2 Sat by Pulse Oximetry (%) 99 01/07/19 21:00 Constitutional: Yes: No Distress Eyes: Yes: WNL HENT: Yes: WNL Neck: Yes: WNL Cardiovascular: Yes: Regular Rate and Rhythm Respiratory: Yes: WNL Gastrointestinal: Yes: WNL Renal/: Yes: WNL Musculoskeletal: Yes: Muscle Weakness Extremities: Yes: WNL Edema: No Peripheral Pulses WNL: Yes Integumentary: Yes: WNL Wound/Incision: Yes: Clean/Dry Neurological: Yes: Pre-Existing Deficit, Unsteady Gait ...Motor Strength: LLE, RLE Psychiatric: Yes: WNL Labs: CBC, BMP 01/07/19 05:47 01/07/19 05:47 Discharge Summary Reason For Visit: PARTIAL SEIZURE, CEREBROVASCULAR ACCIDENT (CVA Current Active Problems CVA (cerebral vascular accident) (Acute) Partial seizure (Acute) Procedures: Principal: MRI BRAIN Hospital Course: ACUTE SEIZURE TREATED NEUROLOGICAL WORKUP, MRI BRAIN NO ACUTE CHANGES, PT EVAL OUTPATIENT EEG Condition: Stable - Instructions Diet, Activity, Other Instructions: SEE DR LAI [address] FRANCISCO FOR EEG OUTPATIENT Disposition: HOME - Home Medications Comprehensive Discharge Medication List: Ambulatory Orders Atorvastatin Ca [Lipitor] 10 mg PO HS 04/09/16 Cholecalciferol (Vitamin D3) [Vitamin D3] 1,000 unit PO DAILY 04/09/16 Cyanocobalamin [Vitamin B12 -] 1,000 mcg PO DAILY 04/09/16 Metoprolol Succinate [Toprol XL -] 100 mg PO DAILY 04/09/16 Rivaroxaban [Xarelto -] 20 mg PO DAILY 04/09/16 Acetaminophen [Tylenol .Regular Strength -] 650 mg PO Q6H PRN #0 tablet levETIRAcetam [Keppra -] 500 mg PO BID #60 tablet 07/26/17 Amlodipine Besylate [Norvasc -] 10 mg PO BID 01/07/19 Olmesartan Medoxomil 20 mg PO DAILY 01/07/19 Carbidopa/Levodopa 25/100 [Sinemet 25/100 -] 1 each PO TID #90 tablet 01/08/19 Folic Acid - 1 mg PO DAILY #30 tablet 01/08/19 Thiamine HCl [Vitamin B1 -] 100 mg PO DAILY #30 tablet 01/08/19
--- NOTE | 2019-01-08 15:16 | EKG ---
Test Reason : Blood Pressure : / mmHG Vent. Rate : 074 BPM Atrial Rate : 074 BPM P-R Int : 168 ms QRS Dur : 092 ms QT Int : 382 ms P-R-T Axes : 055 041 048 degrees QTc Int : 424 ms NORMAL SINUS RHYTHM NONSPECIFIC T WAVE ABNORMALITY ABNORMAL ECG WHEN COMPARED WITH ECG OF 26-JUL-2017 17:06, NO SIGNIFICANT CHANGE WAS FOUND Confirmed by QUINTIN SPARKS MD ([id number]) on 01/08/2019 3:16:06 PM Referred By: Confirmed By:QUINTIN SPARKS MD
[2019-01-08 15:37] VITALS: BP 138/86; TEMP 98.4
== END 2019-01-08 17:13 | disposition home or self-care (01) | DRG 57 ==
LOC: JER 22:46 → JERBED 01-07 02:36 → J5S 01-07 10:36
PROVIDERS: ADMIT Family Medicine; ATTEND Family Medicine
DX: I69.398 Other sequelae of cerebral infarction (principal); G40.802 Other epilepsy, not intractable, without status epilepticus; I48.92 Unspecified atrial flutter; I48.0 Paroxysmal atrial fibrillation; I10 Essential (primary) hypertension; E11.9 Type 2 diabetes mellitus without complications; E78.5 Hyperlipidemia, unspecified; F10.10 Alcohol abuse, uncomplicated; R26.81 Unsteadiness on feet; Z87.891 Personal history of nicotine dependence
CPT/HCPCS: 36415; 70450-TC; 70551-TC; 71045-TC-FY; 80048; 80053; 80177; 81003; 82140; 82550; 82962; 83735; 84100; 84443; 84484; 85025; 85610; 93005; 93010; 99284-25; J1644